=== PATIENT | male | born 1985 | race Caucasian/White ===

== ENCOUNTER 2018-03-16 19:07 | Emergency (ER) | payer OTHER ==
[2018-03-16 19:17] VITALS: BP 136/91
--- NOTE | 2018-03-16 19:34 | UC ---
Cardiac HPI - HPI Summary HPI Summary: 32-year-old male comes to clinic with a chief complaint of chest pain and cough. Patient started with some left sided chest pain about a week and a half ago. Pain is worse with taking a deep breath or coughing. When he takes a deep breath it makes him cough which also makes the pain worse. Shallow breaths decrease the pain. No shortness of breath at rest he does get short of breath with activity. Denies any nausea vomiting or sweating. Denies any upper respiratory tract infection symptoms no sputum production. No calf pain or edema no history of DVT or pulmonary embolus. He does not have any history of high blood pressure high cholesterol or diabetes. He does have a relative who had a heart attack in his mid 40s. No known trauma. - History of Current Complaint Chief Complaint: UCRespiratory Stated Complaint: COUGH, AND CHEST CONGESTION Time Seen by Provider: 03/16/18 19:14 Pain Intensity: 2 - Allergy/Home Medications Allergies/Adverse Reactions: Allergies Allergy/AdvReac Type Severity Reaction Status Date / Time No Known Allergies Allergy Verified 03/16/18 19:17 Home Medications: Home Medications Cholecalciferol TAB* [Vitamin D TAB*] 4,000 units PO DAILY 03/16/18 [History Confirmed 03/16/18] Vitamin B Complex TAB* [B Complex-50*] 1 tab PO DAILY 03/16/18 [History Confirmed 03/16/18] buPROPion TAB* [Wellbutrin TAB*] 450 mg PO DAILY 03/16/18 [History Confirmed 09/24] hydrOXYzine HCL TAB* [Atarax 10 MG TAB*] 10 mg PO PRN 03/16/18 [History] PMH/Surg Hx/FS Hx/Imm Hx Previously Healthy: Yes - Surgical History Surgical History: Yes Surgery Procedure, Year, and Place: L KNEE SURGERY - Family History Known Family History: Positive: Cardiac Disease - Social History Alcohol Use: None Substance Use Type: None Smoking Status (MU): Former Smoker Review of Systems All Other Systems Reviewed And Are Negative: Yes Constitutional: Positive: Negative Skin: Positive: Negative Eyes: Positive: Negative ENT: Positive: Negative Respiratory: Positive: Shortness Of Breath, Cough Cardiovascular: Positive: Chest Pain Gastrointestinal: Positive: Negative Genitourinary: Positive: Negative Motor: Positive: Negative Neurovascular: Positive: Negative Musculoskeletal: Positive: Negative Neurological: Positive: Negative Psychological: Positive: Negative Is Patient Immunocompromised?: No Physical Exam Triage Information Reviewed: Yes Appearance: Well-Appearing, No Pain Distress, Well-Nourished Vital Signs: Initial Vital Signs Temp 98.2 F 03/16/18 19:14 Pulse 81 03/16/18 19:14 Resp 18 03/16/18 19:14 BP 136/91 03/16/18 19:14 Pulse Ox 98 03/16/18 19:14 Vital Signs Reviewed: Yes Eye Exam: Normal Eyes: Positive: Conjunctiva Clear ENT: Positive: Pharynx normal, TMs normal Neck exam: Normal Neck: Positive: Supple Respiratory: Positive: No respiratory distress, No accessory muscle use, Crackles - LEFT Cardiovascular: Positive: RRR Musculoskeletal Exam: Normal Musculoskeletal: Positive: Strength Intact, ROM Intact, No Edema, Other: - NO CALF TENDERNESS Neurological Exam: Normal Neurological: Positive: Alert, Muscle Tone Normal Psychological Exam: Normal Psychological: Positive: Normal Response To Family, Age Appropriate Behavior Skin Exam: Normal Diagnostics - EKG Cardiac Rate: NL - at 1932 Cardiac Rhythm: Sinus: Normal - 78bpm Ectopy: None ST Segment: Non-Specific - st elevation,probable early repol pattern - Assessment/Plan Course Of Treatment: EXAM: XR Chest, 2 Views. EXAM DATE/TIME: 03/16/2018 7:47 PM. CLINICAL HISTORY: 32 years old, male; Signs and symptoms; Cough; Additional info: Left splinting. chest pain, cough. TECHNIQUE: XR of the chest, 2 views. COMPARISON: No relevant prior studies available. FINDINGS: Lungs: Normal. No consolidation. Pleural space: Normal. No pleural effusion. No pneumothorax. Heart/Mediastinum: Normal. No cardiomegaly. Bones/joints: Normal for patient's age. IMPRESSION: Radiographically normal chest. To contact [facility] with a general question: Operations Center - [phone]. For direct physician to physician contact: Physician Hotline - [phone]. [facility] ([facility] Facility ID #[id number]). == End of Report Content . . Attending Doctor: Manuel Quick ([id number]). Associate Sales Manager: Maria Teresa Herrera ([id number]). Newspaper Carriers Supervisor: DEBBY . ([employer]). Report Date: 03/16/2018 19:27:00. Report Status: Final. Begin of Report Content === . Patient Name: DEON FIELDS Medical Record#: [id number]. Ordering Physician: Manuel Quick MD Acct.#: [id number]. : 1985 Age: 32 Sex: M Location: [facility]. Exam Date: 03/16/181926 ADM Status: REG ER. Order Information: CHEST PA LAT 2 VWS. Accession Number: [id number]. CPT: 74010. EXAM: XR Chest, 2 Views. EXAM DATE/TIME: 03/16/2018 7:47 PM. CLINICAL HISTORY: 32 years old, male; Signs and symptoms; Cough; Additional info: Left splinting. chest pain, cough. TECHNIQUE: XR of the chest, 2 views. COMPARISON: No relevant prior studies available. FINDINGS: Lungs: Normal. No consolidation. Pleural space: Normal. No pleural effusion. No pneumothorax. Heart/Mediastinum: Normal. No cardiomegaly. Bones/joints: Normal for patient's age. IMPRESSION: Radiographically normal chest. To contact [facility] with a general question: Operations Center - [phone]. For direct physician to physician contact: Physician Hotline - [phone]. [facility] ([facility] Facility ID #[id number]). . <Electronically signed by Maria Teresa Herrera MD in OV> 03/16/182027. I discussed the EKG and chest x-ray results with the patient and his partner. No infiltrate seen on chest x-ray. Because the patient is having shortness of breath left-sided splinting chest pain and I could not rule out the possibility of a pulmonary embolus. EKG did not show any ischemic changes. Because he did not have timely labs here at urgent care I recommended the patient go the emergency department for further evaluation of his chest pain. - Clinical Impression Provider Diagnosis: Chest pain, Shortness of breath Discharge - Sign-Out/Discharge Documenting (check all that apply): Patient Departure All imaging exams completed and their final reports reviewed: Yes - Discharge Plan Condition: Stable Disposition: HOME-RECOMMEND TO ED Prescriptions: Azithromyxin WILLIE (NF) [Z-Willie (Zithromax) 250 mg tabs #6] 2 tab PO .TODAY, THEN 1 DAILY #6 tab Patient Education Materials: Chest Pain (ED), Shortness of Breath (ED) Referrals: Darion Hopper MD [Primary Care Provider] - Additional Instructions: GO DIRECTLY TO THE EMERGENCY DEPARTMENT FOR FURTHER EVALUATION OF YOUR CHEST PAIN AND SHORTNESS OF BREATH. - Billing Disposition and Condition Condition: STABLE Disposition: Home-Recommend to ED
== END 2018-03-16 20:45 | disposition home health service (06) ==
LOC: UCEAST 19:07
DX: R07.89 Other chest pain (principal); R06.02 Shortness of breath; Z87.891 Personal history of nicotine dependence; R09.89 Other specified symptoms and signs involving the circulatory and respiratory systems
CPT/HCPCS: 71046; 93005; 99212; G0463

== ENCOUNTER 2018-03-16 21:04 | Emergency (ER) | payer OTHER ==
--- NOTE | 2018-03-16 23:27 | ED ---
HPI Chest Pain - HPI Summary HPI Summary: This patient is a 32 year old male presenting to [facility] accompanied by with a chief complaint of chest pain since a week and a half ago. Patient states that he has had chest pains, as well as a cough. Patient was seen at today and was referred to the ED because they could not dx his symptoms. The pain is rated 2/10 in severity. Symptoms aggravated by deep breaths, coughing. Symptoms alleviated by nothing. Patient denies fever. Patient states that he does not have a cardiac hx. - History of Current Complaint Chief Complaint: EDGeneral Time Seen by Provider: 03/16/18 22:48 Hx Obtained From: Patient Onset/Duration: Started Weeks Ago - 1.5, Still Present Timing: Constant Current Severity: Mild Pain Intensity: 2 Pain Scale Used: 0-10 Numeric Chest Pain Radiates: No Character: Cough, Non-Productive Aggravating Factor(s): Deep Breaths, Other: - coughing Alleviating Factor(s): Nothing Associated Signs and Symptoms: Positive: Negative - fever - Allergy/Home Medications Allergies/Adverse Reactions: Allergies Allergy/AdvReac Type Severity Reaction Status Date / Time No Known Allergies Allergy Verified 03/16/18 19:17 PMH/Surg Hx/FS Hx/Imm Hx Previously Healthy: No Cardiovascular History: Denies: Hx Hypertension - BOARDERLINE, Other Cardiovascular Problems/ Disorders Respiratory History: Denies: Hx Asthma Psychiatric History: Reports: Hx Anxiety, Hx Depression, Hx Post Traumatic Stress Disorder - Surgical History Surgery Procedure, Year, and Place: L KNEE SURGERY - Immunization History Date of Tetanus Vaccine: Unk Date of Influenza Vaccine: Fall 2013 Infectious Disease History: No Infectious Disease History: Denies: Traveled Outside the [place] in Last 30 Days - Family History Known Family History: Positive: Cardiac Disease - Social History Lives: With Family Alcohol Use: None Hx Substance Use: No Substance Use Type: Reports: None Hx Tobacco Use: Yes Smoking Status (MU): Former Smoker Review of Systems Negative: Fever Positive: Chest Pain Positive: Cough All Other Systems Reviewed And Are Negative: Yes Physical Exam - Summary Physical Exam Summary: VITAL SIGNS: Reviewed. GENERAL: Patient is a well-developed and morbidly obese male who is lying comfortable in the stretcher. Patient is not in any acute respiratory distress. HEAD AND FACE: No signs of trauma. No ecchymosis, hematomas or skull depressions. No sinus tenderness. EYES: PERRLA, EOMI x 2, No injected conjunctiva, no nystagmus. EARS: Hearing grossly intact. Ear canals and tympanic membranes are within normal limits. MOUTH: Oropharynx within normal limits. NECK: Supple, trachea is midline, no adenopathy, no JVD, no carotid bruit, no c- spine tenderness, neck with full ROM. CHEST: Symmetric, no tenderness at palpation LUNGS: Decreased breath sounds. Bilateral expiratory wheezing CVS: Regular rate and rhythm, S1 and S2 present, no murmurs or gallops appreciated. ABDOMEN: Soft, non-tender. No signs of distention. No rebound no guarding, and no masses palpated. Bowel sounds are normal. EXTREMITIES: FROM in all major joints, no edema, no cyanosis or clubbing. NEURO: Alert and oriented x 3. No acute neurological deficits. Speech is normal and follows commands. SKIN: Dry and warm Triage Information Reviewed: Yes Vital Signs On Initial Exam: Initial Vitals Temp Pulse Resp BP Pulse Ox 97.9 F 80 20 138/90 96 03/16/18 21:14 03/16/18 21:14 03/16/18 21:14 03/16/18 21:14 03/16/18 21:14 Vital Signs Reviewed: Yes Diagnostics - Vital Signs Vital Signs Temp Pulse Resp BP Pulse Ox 03/16/18 23:14 98.3 F 88 18 136/79 99 03/16/18 21:14 97.9 F 80 20 138/90 96 - Laboratory Result Diagrams: 03/16/18 23:37 03/16/18 23:37 Lab Statement: Any lab studies that have been ordered have been reviewed, and results considered in the medical decision making process. Chest Pain Course/Dx - Course Course Of Treatment: This patient is a 32 year old male presenting to [facility] accompanied by with a chief complaint of chest pain since a week and a half ago. Patient states that he has had chest pains, as well as a cough. Bloodwork Obtained. In the ED course the patient was given albuterol, codeine, toradol, solu-medrol. The pt is hemodynamically stable, alert and oriented x3. Patient will be discharged with a dx of reactive airway disease, cough. Patient is advised to follow up with PCP in 2 days. The patient is agreeable with this plan. - Diagnoses Provider Diagnoses: Cough, Reactive airway disease Discharge - Sign-Out/Discharge Documenting (check all that apply): Patient Departure - Discharge Plan Condition: Stable Disposition: HOME Prescriptions: Albuterol HFA INHALER* [Ventolin HFA Inhaler*] 2 puff INH Q6H PRN #1 mdi PRN Reason: Cough Codeine TAB* [Codeine Tab*] 30 mg PO Q6H PRN #14 tab MDD 4 PRN Reason: Cough predniSONE TAB* [Deltasone TAB*] 50 mg PO DAILY #5 tab Patient Education Materials: Reactive Airways Disease (ED) Referrals: Darion Hopper MD [Primary Care Provider] - 2 Days Additional Instructions: Return to the ED for any new or worsening symptoms. - Attestation Statements Document Initiated by Scribe: Yes Documenting Scribe: Sofy Laird Provider For Whom Juanibe is Documenting (Include Credential): Jeanne Reis MD Scribe Attestation: Sofy Coello, scribed for Jeanne Reis MD on 03/17/18 at 0146. Status of Scribe Document: Ready
[2018-03-16] MEDS ORDERED: Albuterol/Ipratropium NEB.SOL* Albuterol 2.5 MG/Ipratropium 0.5 MG 3 ML INH ONE (23:28)
[2018-03-16] MEDS ORDERED: Codeine TAB* 30 MG PO ONE (23:29)
[2018-03-16] MEDS ORDERED: Albuterol 2.5 MG/3 ML NEB.SOL* (0.083%) INH ONE (23:29)
[2018-03-16] MEDS ORDERED: Ketorolac INJ* 30 MG/ML 1 ML VIAL IV PUSH ONE (23:29)
[2018-03-16] MEDS ORDERED: methylPREDNISolone 125 MG* 2 ML VIAL IV ONE (23:29)
[2018-03-16 23:45] LABS: ABS Basophils 0 10^3/ul (0-0.2); ABS Eosinophils 0.3 10^3/ul (0-0.6); ABS Lymphocytes 3.2 10^3/ul (1.0-4.8); ABS Monocytes 0.5 10^3/ul (0-0.8); ABS Neutrophils 2.7 10^3/ul (1.5-7.7); ABS Nucleated RBC 0 10^3/ul; Hematocrit 42 % (42-52); Hemoglobin 14.3 g/dl (14.0-18.0); Lymphocyte % 47.1 %; Mean Corpuscular HGB Conc 34 g/dl (31-36); Mean Corpuscular Hemoglobin 27 pg (27-31); Mean Corpuscular Volume 78 fL (80-94); Mean Platelet Volume 7.6 fL (7.4-10.4); Nucleated Red Blood Cells % 0; Platelet Count 187 10^3/ul (150-450); Red Blood Count 5.35 10^6/ul (4.00-5.40); Red Cell Distribution Width 15 % (10.5-15); White Blood Count 6.8 10^3/ul (3.5-10.8)
[2018-03-17 00:03] LABS: Albumin 4.3 g/dL (3.2-5.2); Albumin/Globulin Ratio 1.6 (1-3); BUN/Creatinine Ratio 18.2 (8-20); Calcium 9.4 mg/dL (8.6-10.3); EGFR African American 139.9 (>60); EGFR Non-African American 115.6 (>60); Globulin 2.7 g/dL (2-4); Magnesium 1.9 mg/dL (1.9-2.7); Potassium 3.9 mmol/L (3.5-5.0); Total Bilirubin 0.5 mg/dL (0.2-1.0)
[2018-03-17] MEDS ORDERED: Albuterol HFA INHALER* 8 gm MDI INH SCH (01:00)
[2018-03-17 02:07] VITALS: BP 125/78
== END 2018-03-17 02:00 | disposition home or self-care (01) ==
LOC: ED 21:04
DX: R05 Cough (principal); J45.909 Unspecified asthma, uncomplicated; R07.89 Other chest pain; Z87.891 Personal history of nicotine dependence
CPT/HCPCS: 36415; 80053; 83735; 84484; 85025; 96374; 96375; 99283; A9270-GY; J1885; J2930

== ENCOUNTER 2018-10-29 12:19 | Emergency (ER) | payer OTHER ==
[2018-10-29 12:47] LABS: ABS Eosinophils 0.3 10^3/ul (0-0.6); ABS Lymphocytes 2.5 10^3/ul (1.0-4.8); ABS Monocytes 0.5 10^3/ul (0-0.8); ABS Neutrophils 2.8 10^3/ul (1.5-7.7); Eosinophil % 4.6 %; Hematocrit 42 % (42-52); Hemoglobin 14.3 g/dL (14.0-18.0); Lymphocyte % 41.2 %; Mean Corpuscular HGB Conc 34 g/dL (31-36); Mean Corpuscular Hemoglobin 27 pg (27-31); Mean Corpuscular Volume 78 fL (80-94); Mean Platelet Volume 7.7 fL (7.4-10.4); Platelet Count 145 10^3/uL (150-450); Red Blood Count 5.36 10^6 /uL (4.18-5.48); Red Cell Distribution Width 15 % (10-15)
[2018-10-29 12:54] LABS: INR 0.99 (0.82-1.09)
[2018-10-29 13:00] LABS: Albumin 4.2 g/dL (3.2-5.2); Albumin/Globulin Ratio 1.5 (1-3); BUN/Creatinine Ratio 18.8 (8-20); EGFR African American 158.8 (>60); EGFR Non-African American 131.3 (>60); Globulin 2.8 g/dL (2-4); Total Bilirubin 0.5 mg/dL (0.2-1.0)
[2018-10-29] MEDS ORDERED: Albuterol HFA INHALER* 8 gm MDI INH ONE (13:26)
[2018-10-29 14:39] VITALS: BP 139/87
--- NOTE | 2018-10-31 05:15 | ED ---
Shortness of Breath - HPI Summary HPI Summary: This patient is a 32-year-old male presenting to the ED with episodes of shortness of breath over the past several days. He states he was diagnosed with reactive airway disease in the past and this feels similar. No history of PNA. He was seen at the [place] clinic who sent him here for further evaluation. He states he has a "tightness" in his chest when he is short of breath. Symptoms are worse with exertion and better with rest. He has not taken anything [id number] for relief. Patient denies any cardiac disease or family of cardiac disease. Denies any history of high blood pressure. He takes no medications and is otherwise healthy. Denies hx of COPD/asthma. - History of Current Complaint Chief Complaint: EDChestPainROMI Time Seen by Provider: 10/29/18 12:27 Hx Obtained From: Patient Onset/Duration: Gradual Onset Timing: Constant Current Severity: Mild Alleviating Factors: Bronchodilators - Risk Factors Pulmonary Embolism: Negative Cardiac: Negative Pseudomonas: Negative Tuberculosis: Negative - Allergy/Home Medications Allergies/Adverse Reactions: Allergies Allergy/AdvReac Type Severity Reaction Status Date / Time No Known Allergies Allergy Verified 10/29/18 12:29 PMH/Surg Hx/FS Hx/Imm Hx Previously Healthy: Yes Cardiovascular History: Denies: Hx Hypertension - BOARDERLINE, Other Cardiovascular Problems/ Disorders Respiratory History: Denies: Hx Asthma Psychiatric History: Reports: Hx Anxiety, Hx Depression, Hx Post Traumatic Stress Disorder - Surgical History Surgery Procedure, Year, and Place: L KNEE SURGERY - Immunization History Date of Tetanus Vaccine: Unk Date of Influenza Vaccine: Fall 2013 Hx Pertussis Vaccination: No Immunizations Up to Date: Yes Infectious Disease History: No Infectious Disease History: Denies: Traveled Outside the [place] in Last 30 Days - Family History Known Family History: Positive: Cardiac Disease - Social History Occupation: Employed Full-time Lives: With Family Alcohol Use: None Hx Substance Use: No Substance Use Type: Reports: None Hx Tobacco Use: Yes Smoking Status (MU): Former Smoker Review of Systems Constitutional: Negative Negative: Fever, Chills, Fatigue, Skin Diaphoresis Negative: Palpitations, Chest Pain Positive: Shortness Of Breath. Negative: Cough Genitourinary: Negative Positive: no symptoms reported, see HPI Negative: Arthralgia, Myalgia Skin: Negative Neurological: Negative All Other Systems Reviewed And Are Negative: Yes Physical Exam Triage Information Reviewed: Yes Vital Signs On Initial Exam: Initial Vitals Temp Pulse Resp BP Pulse Ox 97.9 F 81 18 158/95 97 10/29/18 12:20 10/29/18 12:20 10/29/18 12:20 10/29/18 12:20 10/29/18 12:20 Vital Signs Reviewed: Yes Appearance: Positive: Well-Appearing, Well-Nourished Skin: Positive: Warm, Skin Color Reflects Adequate Perfusion Head/Face: Positive: Normal Head/Face Inspection Eyes: Positive: EOMI, HU, Conjunctiva Clear Neck: Positive: Supple, No Lymphadenopathy Respiratory/Lung Sounds: Positive: Wheezes Cardiovascular: Positive: RRR, Pulses are Symmetrical in both Upper and Lower Extremities Musculoskeletal: Positive: Normal, Strength/ROM Intact Neurological: Positive: Speech Normal Psychiatric: Positive: Affect/Mood Appropriate Diagnostics - Vital Signs Vital Signs Temp Pulse Resp BP Pulse Ox 10/29/18 15:01 97.9 F 85 22 139/87 97 10/29/18 14:34 79 17 139/87 95 10/29/18 14:04 77 141/84 94 10/29/18 14:00 81 94 10/29/18 13:34 77 12 170/102 93 10/29/18 13:04 87 14 142/104 95 10/29/18 13:02 84 97 10/29/18 12:20 97.9 F 81 18 158/95 97 - Laboratory Lab Results: Lab Results 10/29/18 10/29/18 10/29/18 Range/Units 12:34 12:34 12:34 WBC 6.0 (3.5-10.8) 10^3/uL RBC 5.36 (4.18-5.48) 10^6 /uL Hgb 14.3 (14.0-18.0) g/dL Hct 42 (42-52) % MCV 78 L (80-94) fL MCH 27 (27-31) pg MCHC 34 (31-36) g/dL RDW 15 (10-15) % Plt Count 145 L (150-450) 10^3/uL MPV 7.7 (7.4-10.4) fL Neut % (Auto) 46.0 % Lymph % (Auto) 41.2 % [place] % (Auto) 7.7 % Eos % (Auto) 4.6 % Baso % (Auto) 0.5 % Absolute Neuts (auto) 2.8 (1.5-7.7) 10^3/ul Absolute Lymphs (auto) 2.5 (1.0-4.8) 10^3/ul Absolute Monos (auto) 0.5 (0-0.8) 10^3/ul Absolute Eos (auto) 0.3 (0-0.6) 10^3/ul Absolute Basos (auto) 0.0 (0-0.2) 10^3/ul Absolute Nucleated RBC 0.0 10^3/ul Nucleated RBC % 0.0 INR (Anticoag Therapy) 0.99 (0.82-1.09) Sodium 138 (135-145) mmol/L Potassium 4.0 (3.5-5.0) mmol/L Chloride 105 (101-111) mmol/L Carbon Dioxide 29 (22-32) mmol/L Anion Gap 4 (2-11) mmol/L BUN 13 (6-24) mg/dL Creatinine 0.69 (0.67-1.17) mg/dL Est GFR ( Amer) 158.8 (>60) Est GFR (Non-Af Amer) 131.3 (>60) BUN/Creatinine Ratio 18.8 (8-20) Glucose 150 H (70-100) mg/dL Calcium 9.0 (8.6-10.3) mg/dL Total Bilirubin 0.50 (0.2-1.0) mg/dL AST 19 (13-39) U/L ALT 33 (7-52) U/L Alkaline Phosphatase 28 L (34-104) U/L Troponin I 0.00 (<0.04) ng/mL Total Protein 7.0 (6.4-8.9) g/dL Albumin 4.2 (3.2-5.2) g/dL Globulin 2.8 (2-4) g/dL Albumin/Globulin Ratio 1.5 (1-3) Result Diagrams: 10/29/18 12:34 10/29/18 12:34 Lab Statement: Any lab studies that have been ordered have been reviewed, and results considered in the medical decision making process. Course/Dx - Course Course Of Treatment: Unrevealing to the ED, the patient's vital signs are stable. He remains afebrile and not tachycardic. EKG was obtained on arrival which shows a normal sinus rhythm. Patient is evaluated for shortness of breath and chest tightness. He denies symptoms currently. He states symptoms are worse with exertion. He has never been diagnosed with asthma. Labs are obtained including a troponin of 0.00, labs unremarkable. Chest x-ray obtained which shows no active acute cardiopulmonary disease. He remains on room air and sat at 99%. Lungs with mild wheezing bilaterally, with no rhonchorous sounds. Patient is alert and oriented, nontoxic and nondiaphoretic appearing. Patient appears well. He states he was referred to a desk maker last time, has not seen them. He states he will follow-up with him soon. He is diagnosed with reactive airway disease and is given a short course of steroids and albuterol inhaler. Albuterol inhaler given in ED and patient states he feels improved. - Diagnoses Differential Diagnosis/HQI/PQRI: Positive: Asthma, Bronchitis, Pneumonia Provider Diagnoses: Reactive airway disease Discharge ED - Sign-Out/Discharge Documenting (check all that apply): Patient Departure Patient Received Moderate/Deep Sedation with Procedure: No - Discharge Plan Condition: Stable Disposition: HOME Prescriptions: predniSONE TAB* [Deltasone TAB*] 50 mg PO DAILY #5 tab MDD 1 Patient Education Materials: Reactive Airways Disease (ED), Wheezing (ED) Referrals: Darion Hopper MD [Primary Care Provider] - Elsi Harrison MD [Medical Doctor] - Additional Instructions: Albuterol inhaler as needed for shortness of breath Prednisone once daily in the morning x 5 days - begin this this afternoon Follow up with [place] clinic or with Dr. Harrison for further evaluation - Billing Disposition and Condition Condition: STABLE Disposition: Home
== END 2018-10-29 15:01 | disposition home or self-care (01) ==
LOC: ED 12:19
DX: J45.909 Unspecified asthma, uncomplicated (principal); Z87.891 Personal history of nicotine dependence; F41.9 Anxiety disorder, unspecified; F32.9 Major depressive disorder, single episode, unspecified; F43.10 Post-traumatic stress disorder, unspecified
CPT/HCPCS: 36415; 71046; 80053; 84484; 85025; 85610; 93005; 99282; A9270-GY